=== PATIENT | male | born 1955 | race African-American/Black ===

== ENCOUNTER 2021-02-06 20:54 | Observation (INO) | payer BC, OTHER ==
[2021-02-06 21:16] VITALS: BMI 43.2
[2021-02-06 22:29] LABS: BASO % 0.9 % (0-2.0); EOS % 3.9 % (0-4.5); HEMATOCRIT 41.4 % (35.4-49); HEMOGLOBIN 14.2 GM/dL (11.7-16.9); LYMPH % 30.1 % (8-40); MCH 29.4 pg (25.7-33.7); MCHC 34.2 g/dl (32.0-35.9); MEAN PLT VOLUME 8.3 fl (7.5-11.1); NEUT % 53.1 % (42.8-82.8); PLATELET COUNT 152 10^3/uL (134-434); RBC 4.81 M/mm3 (4.00-5.60); WHITE BLOOD COUNT 7.4 K/mm3 (4.0-10.0)
[2021-02-06 22:47] LABS: CHLORIDE 106 mmol/L (98-107); SODIUM 138 mmol/L (136-145)
[2021-02-06 22:49] LABS: CALCIUM 8.7 mg/dL (8.5-10.1)
[2021-02-06 22:50] LABS: ALBUMIN 4.3 g/dl (3.4-5.0); ANION GAP 6 MMOL/L (8-16); BLOOD UREA NITROGEN 9.3 mg/dL (7-18); CO2 27 mmol/L (21-32); GLUCOSE,RANDOM 122 mg/dL (74-106); MAGNESIUM 2.3 mg/dL (1.8-2.4)
[2021-02-06 22:53] LABS: CREATININE 1.3 mg/dL (0.55-1.3); SGOT/AST 57 U/L (15-37); SGPT/ALT 40 U/L (13-61)
[2021-02-06 22:54] LABS: BILIRUBIN,TOTAL 0.6 mg/dL (0.2-1)
[2021-02-06 22:55] LABS: TOT PROT 8.2 g/dl (6.4-8.2)
[2021-02-06 22:56] LABS: ALK PHOS 104 U/L (45-117)
[2021-02-06 22:58] LABS: N-TERMINAL BNP 66.3 pg/ml (5-125)
[2021-02-06] MEDS ORDERED: ASPIRIN 81 MG CHEWABLE TABLETS PO ONE (23:11)
[2021-02-06] MEDS ORDERED: ACETAMINOPHEN 1000 MG/100 ML VIAL (NON FORMULARY) IVPB ONE (23:12)
[2021-02-06] MEDS ORDERED: ACETAMINOPHEN INJECTION 100 ML IVPB ONE (23:20)
[2021-02-06] MEDS ORDERED: ASPIRIN 81 MG CHEWABLE TABLETS ONE (23:20)
[2021-02-06] MEDS ORDERED: FUROSEMIDE 40 MG/4 ML INJECTABLE VIAL IVPUSH ONE (23:21)
[2021-02-06] MEDS ORDERED: FUROSEMIDE 40 MG/4 ML INJECTABLE VIAL ONE (23:32)
[2021-02-07 02:25] LABS: CHOLESTEROL 115 mg/dL (50-200)
[2021-02-07 02:26] LABS: LDL CHOLESTEROL (ONLY SJRH) 71 mg/dL (5-100); TRIGLYCERIDES 108 mg/dL (0-150)
[2021-02-07 02:28] LABS: HDL CHOLESTEROL 29 mg/dL (40-60)
[2021-02-07 03:02] LABS: URIC ACID 3.7 mg/dL (2.6-7.2)
[2021-02-07 06:38] LABS: HEMATOCRIT 40.3 % (35.4-49); MCHC 34.6 g/dl (32.0-35.9); MEAN CELL VOLUME 86.6 fl (80-96); MEAN PLT VOLUME 8.6 fl (7.5-11.1); PLATELET COUNT 158 10^3/uL (134-434); RBC 4.65 M/mm3 (4.00-5.60); WHITE BLOOD COUNT 6.6 K/mm3 (4.0-10.0)
[2021-02-07 07:03] LABS: CHLORIDE 106 mmol/L (98-107); SODIUM 141 mmol/L (136-145)
[2021-02-07 07:07] LABS: ALBUMIN 4.1 g/dl (3.4-5.0); ANION GAP 6 MMOL/L (8-16); BLOOD UREA NITROGEN 8.1 mg/dL (7-18); CALCIUM 8.3 mg/dL (8.5-10.1); CO2 29 mmol/L (21-32); GLUCOSE,RANDOM 124 mg/dL (74-106); MAGNESIUM 2.1 mg/dL (1.8-2.4)
[2021-02-07 07:10] LABS: CREATININE 1.1 mg/dL (0.55-1.3); PHOSPHOROUS 3.5 mg/dL (2.5-4.9); SGOT/AST 27 U/L (15-37); SGPT/ALT 34 U/L (13-61)
[2021-02-07 07:12] LABS: BILIRUBIN,TOTAL 0.7 mg/dL (0.2-1); TOT PROT 7.4 g/dl (6.4-8.2)
[2021-02-07 07:13] LABS: ALK PHOS 95 U/L (45-117)
[2021-02-07] MEDS ORDERED: POTASSIUM CHLORIDE ORAL LIQUID 20 MEQ/15 ML PO ONE (07:43)
[2021-02-07] MEDS: INSULIN SLIDING SCALE (NOVOLOG) 1 VIAL SQ SCH ×4 (07:45→21:36)
[2021-02-07] MEDS ORDERED: TAMSULOSIN HCL 0.4 MG CAP ONE (08:10)
[2021-02-07] MEDS: KCL 10 MEQ IVPB 10 MEQ/100 ML INFUS.BAG IVPB SCH ×3 (08:12→11:55)
[2021-02-07] MEDS: TAMSULOSIN HCL 0.4 MG CAP PO SCH (08:12)
[2021-02-07 08:37] LABS: URINE APPEARANCE CLEAR; URINE BILIRUBIN NEGATIVE (NEGATIVE); URINE COLOR YELLOW; URINE GLUCOSE (UA) NEGATIVE (NEGATIVE); URINE KETONE NEGATIVE (NEGATIVE); URINE LEUK ESTERASE NEGATIVE (NEGATIVE); URINE NITRITE NEGATIVE (NEGATIVE); URINE PROTEIN NEGATIVE (NEGATIVE)
[2021-02-07 08:47] LABS: URINE AMPHETAMINES NEGATIVE (NEGATIVE); URINE BARBITURATES NEGATIVE (NEGATIVE)
[2021-02-07 08:48] LABS: COCAINE, UR NEGATIVE (NEGATIVE); METHADONE, UR NEGATIVE (NEGATIVE); OPIATES, URI NEGATIVE (NEGATIVE); PHENCYCLIDINE,URINE NEGATIVE (NEGATIVE); URINE BENZODIAZEPINES NEGATIVE (NEGATIVE)
[2021-02-07] MEDS ORDERED: ATENOLOL 50 MG TABLET (FP) PO SCH (10:00)
[2021-02-07] MEDS ORDERED: PANTOPRAZOLE 20 MG TABLET PO SCH (10:00)
[2021-02-07] MEDS ORDERED: KCL 10 MEQ IVPB 10 MEQ/100 ML INFUS.BAG IVPB ONE (11:45)
[2021-02-07] MEDS ORDERED: PANTOPRAZOLE 40 MG TABLET ONE (11:45)
[2021-02-07] MEDS ORDERED: ENOXAPARIN NA (PORCINE) 40 MG/0.4 ML DISP.SYRIN SQ ONE (11:45)
[2021-02-07] MEDS: ENOXAPARIN NA (PORCINE) 40 MG/0.4 ML DISP.SYRIN SQ SCH ×2 (11:55→21:35)
[2021-02-07] MEDS ORDERED: FUROSEMIDE 40 MG TABLET (FP) PO SCH (14:00)
[2021-02-07] MEDS ORDERED: FUROSEMIDE 40 MG TABLET (FP) ONE (14:07)
[2021-02-07] MEDS: ALLOPURINOL 300 MG TABLET (FP) PO SCH (15:12)
[2021-02-07] MEDS ORDERED: TETANUS AND DIPHTHERIA TOXOID 0.5 ML DISP.SYRIN IM ONE (16:16)
[2021-02-07] MEDS ORDERED: DIPHTH,PERTUSS(ACELL),TET 0.5 ML DISP.SYRIN IM ONE (17:00)
[2021-02-07] MEDS ORDERED: POLYETHYLENE GLYCOL (HEALTHYLAX) 3350 17 GM PACKET PO ONE (17:11)
[2021-02-07] MEDS: ATORVASTATIN CA 10 MG TABLET (FP) PO SCH (21:35)
[2021-02-07] MEDS: ATENOLOL 50 MG TABLET (FP) PO SCH (21:35)
[2021-02-07] MEDS ORDERED: amLODIPine BESYLATE 10 MG TABLET (FP) PO SCH (22:00)
[2021-02-07] MEDS ORDERED: DOCUSATE SODIUM 100 MG CAPSULE (FP) PO ONE (22:13)
[2021-02-08] MEDS: FUROSEMIDE 40 MG TABLET (FP) PO SCH ×2 (05:50→15:14)
[2021-02-08] MEDS ORDERED: DOCUSATE SODIUM 100 MG CAPSULE (FP) PO ONE (06:17)
[2021-02-08] MEDS: INSULIN SLIDING SCALE (NOVOLOG) 1 VIAL SQ SCH ×4 (06:35→21:00)
[2021-02-08 07:43] LABS: HEMATOCRIT 41.6 % (35.4-49); HEMOGLOBIN 14.2 GM/dL (11.7-16.9); MCH 29.9 pg (25.7-33.7); MCHC 34.2 g/dl (32.0-35.9); MEAN CELL VOLUME 87.4 fl (80-96); MEAN PLT VOLUME 8.9 fl (7.5-11.1); PLATELET COUNT 154 10^3/uL (134-434); RBC 4.76 M/mm3 (4.00-5.60); RDW 15.1 % (11.9-15.9); WHITE BLOOD COUNT 7.9 K/mm3 (4.0-10.0)
[2021-02-08 08:07] LABS: CALCIUM 8.6 mg/dL (8.5-10.1)
[2021-02-08 08:08] LABS: ALBUMIN 3.9 g/dl (3.4-5.0); BLOOD UREA NITROGEN 13.2 mg/dL (7-18)
[2021-02-08 08:12] LABS: BILIRUBIN,TOTAL 0.6 mg/dL (0.2-1)
[2021-02-08] MEDS: amLODIPine BESYLATE 10 MG TABLET (FP) PO SCH (09:02)
[2021-02-08] MEDS: ASPIRIN COATED 81 MG TABLET.EC PO SCH (09:02)
[2021-02-08] MEDS ORDERED: DOCUSATE SODIUM 100 MG CAPSULE (FP) PO SCH (10:00)
[2021-02-08] MEDS ORDERED: DOXAZOSIN MESYLATE 8 MG PO SCH (10:00)
[2021-02-08] MEDS ORDERED: REGADENOSON 0.4 MG/5 ML PRE-FILLED SYRINGE IVPUSH ONE (10:48)
[2021-02-08] MEDS: ATENOLOL 50 MG TABLET (FP) PO SCH ×2 (15:14→21:00)
[2021-02-08] MEDS: ALLOPURINOL 300 MG TABLET (FP) PO SCH (15:14)
[2021-02-08] MEDS: ENOXAPARIN NA (PORCINE) 40 MG/0.4 ML DISP.SYRIN SQ SCH ×2 (15:15→21:00)
[2021-02-08] MEDS: TAMSULOSIN HCL 0.4 MG CAP PO SCH (15:15)
[2021-02-08] MEDS: PANTOPRAZOLE 40 MG TABLET PO SCH (15:15)
[2021-02-08] MEDS: DOCUSATE SODIUM 100 MG CAPSULE (FP) PO SCH (21:00)
[2021-02-08] MEDS: ATORVASTATIN CA 10 MG TABLET (FP) PO SCH (21:00)
[2021-02-08] MEDS ORDERED: SENNOSIDES 8.6MG TABLET (FP) PO SCH (22:00)
[2021-02-09] MEDS: FUROSEMIDE 40 MG TABLET (FP) PO SCH ×2 (06:04→14:50)
[2021-02-09] MEDS: INSULIN SLIDING SCALE (NOVOLOG) 1 VIAL SQ SCH ×2 (06:31→12:00)
[2021-02-09] MEDS: ASPIRIN COATED 81 MG TABLET.EC PO SCH (09:48)
[2021-02-09] MEDS: ATENOLOL 50 MG TABLET (FP) PO SCH (09:48)
[2021-02-09] MEDS: TAMSULOSIN HCL 0.4 MG CAP PO SCH (09:48)
[2021-02-09] MEDS: ALLOPURINOL 300 MG TABLET (FP) PO SCH (09:48)
[2021-02-09] MEDS: DOCUSATE SODIUM 100 MG CAPSULE (FP) PO SCH (09:49)
[2021-02-09] MEDS: amLODIPine BESYLATE 10 MG TABLET (FP) PO SCH (09:49)
[2021-02-09] MEDS: ENOXAPARIN NA (PORCINE) 40 MG/0.4 ML DISP.SYRIN SQ SCH (09:49)
[2021-02-09] MEDS: PANTOPRAZOLE 40 MG TABLET PO SCH (09:50)
[2021-02-09] MEDS ORDERED: DOCUSATE SODIUM 100 MG CAPSULE (FP) PO SCH (10:00)
[2021-02-09 12:47] VITALS: TEMP 98.1
[2021-02-09 16:44] VITALS: BP 159/90; PULSE 70
== END 2021-02-09 17:17 | disposition home or self-care (01) ==
LOC: JER 20:54 → JERBED 23:19 → INTOOBSV 02-07 02:19 → OBSVTOIN 02-07 02:19 → J2W 02-07 14:18
PROVIDERS: ADMIT Internal Medicine; ATTEND Internal Medicine
PROC: 3E033NZ Introduction of Analgesics, Hypnotics, Sedatives into Peripheral Vein, Percutaneous Approach (ICD-10-PCS; principal; 2021-02-06)
PROC: 3E033GC Introduction of Other Therapeutic Substance into Peripheral Vein, Percutaneous Approach (ICD-10-PCS; 2021-02-06)
PROC: 3E023GC Introduction of Other Therapeutic Substance into Muscle, Percutaneous Approach (ICD-10-PCS; 2021-02-06)
PROC: 3E0234Z Introduction of Serum, Toxoid and Vaccine into Muscle, Percutaneous Approach (ICD-10-PCS; 2021-02-06)
PROC: 3E0234Z Introduction of Serum, Toxoid and Vaccine into Muscle, Percutaneous Approach (ICD-10-PCS; 2021-02-06)
PROC: 3E013VG Introduction of Insulin into Subcutaneous Tissue, Percutaneous Approach (ICD-10-PCS; 2021-02-06)
DX: I11.0 Hypertensive heart disease with heart failure (principal); R07.9 Chest pain, unspecified; R06.02 Shortness of breath; E78.5 Hyperlipidemia, unspecified; E66.01 Morbid (severe) obesity due to excess calories; Z68.41 Body mass index [BMI] 40.0-44.9, adult; G47.30 Sleep apnea, unspecified; J45.909 Unspecified asthma, uncomplicated; K21.9 Gastro-esophageal reflux disease without esophagitis; R73.03 Prediabetes; N40.0 Benign prostatic hyperplasia without lower urinary tract symptoms; I50.9 Heart failure, unspecified; Z79.4 Long term (current) use of insulin; Z88.8 Allergy status to other drugs, medicaments and biological substances
CPT/HCPCS: 36415; 71046-TC-FY; 78452-TC; 80053; 80061; 80307; 81003; 82550; 82553; 82962; 83036; 83735; 83880; 84100; 84443; 84484; 84550; 85025; 85027; 90715; 93005; 93010; 93017; 93306-TC; 94660; 99285-25; A9502; C9803; G0378; J0131; U0003; U0005